=== PATIENT | female | born 2000 | race Two or more races ===

== ENCOUNTER 2022-09-16 17:01 | Emergency (ER) | payer OTHER ==
[~2022-09-16] VITALS: Ht 180.3 cm; Wt 68.0 kg
[2022-09-16 17:21] VITALS: BP 100/54
[2022-09-16] MEDS ORDERED: LIDOCAINE HCL/PF 1% 30 ML VIAL TP ONE (18:00)
[2022-09-16] MEDS ORDERED: LIDOCAINE HCL/MPF 1% 30 ML VIAL IJ ONE (18:16)
[2022-09-16] MEDS ORDERED: IBUP-1955 PO (19:41)
[2022-09-16] MEDS ORDERED: CEPH500T PO (19:41)
== END 2022-09-16 19:53 | disposition home or self-care (01) ==
LOC: ER 17:13
DX: L60.0 Ingrowing nail (principal)
CPT/HCPCS: 99284; 11730; J3490 ×2